=== PATIENT | male | born 1960 | race Caucasian/White ===

== ENCOUNTER 2019-07-08 11:38 | Inpatient (IN) ==
[2019-07-08] MEDS ORDERED: Ipratropium/Albuterol Neb 3 ML IH ONE (12:43)
[2019-07-08] MEDS ORDERED: 0.9 % Sodium Chloride 1,000 ML IVC ONE (12:43)
[2019-07-08] MEDS ORDERED: methylPREDNISolone 125 MG/2 ML VIAL IVP ONE (12:43)
[2019-07-08] MEDS ORDERED: Ondansetron 4 MG/2 ML VIAL IVP ONE (13:06)
[2019-07-08 13:07] LABS: Basophils % 0.5 %; Eosinophils % 0.1 %; Hematocrit 39.5 % (37.5-50.1); Hemoglobin 12.7 g/dL (12.9-16.9); Immature Granulocytes % 0.4 % (0-4); Lymphocytes # 2.2 K/mcL (0.6-4.6); Lymphocytes % 29.6 %; Mean Corpuscular HGB Conc 32.2 g/dL (31.6-35.5); Mean Corpuscular Hemoglobin 27.5 pg (28.0-33.3); Mean Corpuscular Volume 85.7 fL (83.0-100.0); Mean Platelet Volume 10.1 fL (9.4-12.4); Monocytes # 0.6 K/mcL (0.0-1.3); Monocytes % 8.1 %; Neutrophils # 4.5 K/mcL (1.6-8.9); Platelet Count 256 K/mcL (140-400); Red Blood Count 4.61 M/mcL (4.19-5.50); Red Cell Distribution Width 14.1 % (11.5-14.5); Segmented Neutrophils % 61.3 %; White Blood Count 7.3 K/mcL (4.3-11.1)
[2019-07-08 13:26] LABS: Albumin 4.2 g/dL (3.5-5.7); Albumin/Globulin Ratio 1.2 (1.1-2.2); Bilirubin,Direct 0.1 mg/dL (0.0-0.2); Bilirubin,Indirect 0.2 mg/dL (0.0-1.0); Bilirubin,Total 0.3 mg/dL (0.3-1.0); Globulin 3.5 g/dL (2.4-3.5); Total Protein 7.7 g/dL (6.4-8.9)
[2019-07-08 13:27] LABS: Calcium 8.8 mg/dL (8.6-10.3); Potassium 3.9 mEq/L (3.5-5.1)
[2019-07-08] MEDS ORDERED: Naloxone 0.4 MG/ML INJ IVP PRN (15:16)
[2019-07-08] MEDS ORDERED: Ondansetron 4 MG/2 ML VIAL IVP PRN (15:16)
[2019-07-08] MEDS ORDERED: Mag Hydrox/Al Hydrox/Simeth 30 ML UDC PO PRN (15:16)
[2019-07-08] MEDS ORDERED: MOM Conc 10 ML UD.LIQ PO PRN (15:16)
[2019-07-08 16:19] LABS: Bilirubin,Urine Negative (Negative); Blood,Urine Negative (Negative); Clarity,Urine Clear (Clear); Color,Urine Yellow (Yellow); Glucose,Urine (UA) Normal (Normal); Ketones,Urine Negative (Negative); Leukocyte Esterase,Urine Negative (Negative); Nitrite,Urine Negative (Negative); Protein,Urine Trace mg/dL (Neg-Trace); Specific Gravity,Urine 1.025 (1.010-1.025); Urobilinogen,Urine Normal (Normal)
[2019-07-08] MEDS: Ipratropium/Albuterol Neb 3 ML IH SCH ×2 (21:38→22:37)
[2019-07-08] MEDS: Acetaminophen 325 MG TABLET PO PRN (22:26)
[2019-07-08] MEDS: Azithromycin 500 MG in 0.9 % Sodium Chloride 250 ML IVPB SCH (22:27)
[2019-07-08] MEDS: 0.9 % Sodium Chloride 1,000 ML IVC SCH (22:28)
[2019-07-08] MEDS ORDERED: Dextrose Gel 15 GM/37.5 ML TUBE PO PRN ×2 (22:47)
[2019-07-08] MEDS ORDERED: D5% in Water 1,000 ML IVC PRN (22:47)
[2019-07-08] MEDS ORDERED: *HR* Dextrose 50 % in Water (Syg) 50 ML SYRINGE IVP PRN (22:47)
[2019-07-09] MEDS: Insulin LISPRO 300 UNITS/3 ML VIAL SQ SCH ×4 (00:14→17:13)
[2019-07-09] MEDS: MethylPREDNISolone 40 MG/ML VIAL IVP SCH ×4 (00:15→17:13)
[2019-07-09 05:33] LABS: Basophils % 0.3 %; Hematocrit 36.4 % (37.5-50.1); Hemoglobin 11.7 g/dL (12.9-16.9); Immature Granulocytes % 0.5 % (0-4); Lymphocytes # 1.4 K/mcL (0.6-4.6); Mean Corpuscular HGB Conc 32.1 g/dL (31.6-35.5); Mean Corpuscular Hemoglobin 27.5 pg (28.0-33.3); Mean Corpuscular Volume 85.6 fL (83.0-100.0); Monocytes # 0.2 K/mcL (0.0-1.3); Monocytes % 5.4 %; Neutrophils # 2.1 K/mcL (1.6-8.9); Platelet Count 256 K/mcL (140-400); Red Blood Count 4.25 M/mcL (4.19-5.50); Red Cell Distribution Width 14.1 % (11.5-14.5); Segmented Neutrophils % 56.8 %; White Blood Count 3.7 K/mcL (4.3-11.1)
[2019-07-09 07:06] LABS: BUN/Creatinine Ratio 35 (6-26); Blood Urea Nitrogen 33 mg/dL (6-20); Calcium 8.1 mg/dL (8.6-10.3); Carbon Dioxide 27 mEq/L (23-29); Chloride 102 mEq/L (98-107); Glucose 238 mg/dL (70-105); Osmolality,Calculated 301 (280-300); Potassium 4.2 mEq/L (3.5-5.1); Sodium 138 mEq/L (136-145); eGFR For African Americans > 60 (> 60); eGFR For Non-African Americans > 60 (> 60)
[2019-07-09 07:26] LABS: Hypochromasia Present (Not Present); Platelet Estimate Normal (Normal)
[2019-07-09] MEDS: cefTRIAXone 1,000 MG in Water for inj. (sterile) 10 ML IVP SCH (07:58)
[2019-07-09] MEDS: 0.9 % Sodium Chloride 1,000 ML IVC SCH (08:00)
[2019-07-09] MEDS: Acetaminophen 325 MG TABLET PO PRN (08:01)
[2019-07-09] MEDS: Ipratropium/Albuterol Neb 3 ML IH SCH ×4 (08:10→22:54)
[2019-07-09] MEDS ORDERED: *HR* HYDROcodone/Acet 10/325 mg TABLET PO PRN (08:41)
[2019-07-09] MEDS ORDERED: *HR* SitaGLIPtin 25 MG TABLET PO SCH (09:00)
[2019-07-09] MEDS: Fenofibrate 54 MG TABLET PO SCH (09:30)
[2019-07-09] MEDS: Aspirin 81 MG TAB.CHEW PO SCH (09:31)
[2019-07-09] MEDS ORDERED: *HR* Dextrose 50 % in Water (Vial) 50 ML VIAL IVP PRN (11:15)
[2019-07-09] MEDS ORDERED: *HR* Metformin 500 MG TABLET PO SCH (17:00)
[2019-07-09 22:03] LABS: Adenovirus Not Detected (Not Detect); Bordetella Pertussis Not Detected (Not Detect); Chlamydophila pneumoniae Not Detected (Not Detect); Coronavirus 229E Not Detected (Not Detect); Coronavirus HKU1 Not Detected (Not Detect); Coronavirus NL63 Not Detected (Not Detect); Coronavirus OC43 Not Detected (Not Detect); Human Metapneumovirus Not Detected (Not Detect); Human Rhinovirus/Enterovirus Not Detected (Not Detect); Influenza B Not Detected (Not Detect); Mycoplasma pneumoniae Not Detected (Not Detect); Parainfluenza Virus 1 Not Detected (Not Detect); Parainfluenza Virus 2 Not Detected (Not Detect); Parainfluenza Virus 3 Not Detected (Not Detect); Parainfluenza Virus 4 Not Detected (Not Detect); Respiratory Syncytial Virus Not Detected (Not Detect)
[2019-07-09 22:04] LABS: Influenza A Subtype 2009 H1 DETECTED (Not Detect)
[2019-07-09] MEDS: Azithromycin 500 MG in 0.9 % Sodium Chloride 250 ML IVPB SCH (22:58)
[2019-07-10] MEDS: Insulin LISPRO 300 UNITS/3 ML VIAL SQ SCH ×4 (00:30→17:52)
[2019-07-10] MEDS: MethylPREDNISolone 40 MG/ML VIAL IVP SCH ×4 (00:30→17:52)
[2019-07-10] MEDS: Ipratropium/Albuterol Neb 3 ML IH SCH ×4 (04:43→22:30)
[2019-07-10] MEDS: cefTRIAXone 1,000 MG in Water for inj. (sterile) 10 ML IVP SCH (08:09)
[2019-07-10] MEDS: Fenofibrate 54 MG TABLET PO SCH (08:10)
[2019-07-10] MEDS: Acetaminophen 325 MG TABLET PO PRN (08:10)
[2019-07-10] MEDS: Aspirin 81 MG TAB.CHEW PO SCH (08:11)
[2019-07-10] MEDS: Azithromycin 500 MG in 0.9 % Sodium Chloride 250 ML IVPB SCH (22:16)
[2019-07-11] MEDS: MethylPREDNISolone 40 MG/ML VIAL IVP SCH ×3 (00:35→13:15)
[2019-07-11] MEDS: Insulin LISPRO 300 UNITS/3 ML VIAL SQ SCH ×3 (00:36→13:15)
[2019-07-11] MEDS: Ipratropium/Albuterol Neb 3 ML IH SCH ×2 (05:30→11:18)
[2019-07-11 07:06] VITALS: BP 143/75
[2019-07-11] MEDS: cefTRIAXone 1,000 MG in Water for inj. (sterile) 10 ML IVP SCH (08:41)
[2019-07-11] MEDS: Aspirin 81 MG TAB.CHEW PO SCH (08:42)
[2019-07-11] MEDS: Fenofibrate 54 MG TABLET PO SCH (08:42)
[2019-07-13 08:37] LABS: Mycoplasma pneumoniae IgG 0.15 U/L (<=0.09)
== END 2019-07-11 16:07 | disposition home or self-care (01) | DRG 140 ==
LOC: INPPIK 11:38 → EMEROOPIK 11:38 → INPPIK 19:46 → SUATTDRO 07-10 12:41
PROVIDERS: ADMIT Emergency Medicine; ATTEND Family Medicine